=== PATIENT | male | born 1970 | race Caucasian/White ===

== ENCOUNTER 2018-04-09 16:46 | Emergency (ER) | payer OTHER, SELFPAY ==
[2018-04-09] MEDS ORDERED: NA CHLORIDE 0.9% 1,000 ML ONE (17:22)
[2018-04-09] MEDS ORDERED: MORPHINE 4 MG/ML SYR ONE (17:22)
[2018-04-09] MEDS ORDERED: ONDANSETRON 4 MG/2 ML VIAL ONE (17:22)
[2018-04-09 17:39] LABS: Absolute Lymphocytes (CBC) 3.7 K/uL (0.7-4.9); Absolute Monocytes 0.8 K/uL (0.1-1.3); Absolute Neutrophil 5.4 K/uL (1.8-8.0); Eosinophils % 1.8 % (0-4.4); Hematocrit 44.2 % (39.6-49.0); Lymphocytes % 36.4 % (15.3-44.8); MCH 29.1 pg (27.0-35.0); MCV 90.2 fL (80-100); MPV 8.7 fL (7.6-11.3)
--- NOTE | 2018-04-09 17:48 | RAD REPORT ---
EXAM DESCRIPTION: RAD - Wrist Left 3 View - 04/09/2018 5:41 pm CLINICAL HISTORY: Left wrist pain status post injury FINDINGS: An impacted comminuted intra-articular fracture involves the distal radius with angulation present at fracture site. No dislocation is seen.
[2018-04-09 17:49] LABS: Potassium 3.8 mEq/L (3.6-5.0)
[2018-04-09] MEDS ORDERED: BUPIVACAINE 0.5% PF 10 ML VIAL ONE (17:56)
[2018-04-09] MEDS ORDERED: LIDOCAINE 1% W/EPI 1:100,000 MDV 50 ML VIAL ONE (17:56)
--- NOTE | 2018-04-09 19:01 | ER ---
Nurse's Notes [facility] Name: Anthony Pulido Age: 48 yrs Sex: Male : 1970 Arrival Date: 04/09/2018 Time: 16:50 Bed 2 Private MD: None, None Diagnosis: Displaced Fracture of Left Distal Radius Presentation: 04/09 16:55 Presenting complaint: Patient states: "I fell out of ceiling and landed on left arm." sv left forearm deformity noted. Denies head injury or LOC. Transition of care: patient was not received from another setting of care. Onset of symptoms was April 09, 2018 at 16:30. Care prior to arrival: None. 16:55 Method Of Arrival: Wheelchair sv 16:55 Acuity: SACHA 3 sv 17:35 Risk Assessment: Do you want to hurt yourself or someone else? Patient reports no ph desire to harm self or others. Initial Sepsis Screen: Does the patient meet any 2 criteria? No. Patient's initial sepsis screen is negative. Does the patient have a suspected source of infection? No. Patient's initial sepsis screen is negative. Triage Assessment: 19:24 Injury Description: Deformity sustained to left wrist. tl3 Historical: - Allergies: 16:56 No Known Allergies; sv - Home Meds: 16:56 None [Active]; sv - PMHx: 16:56 None; sv - PSHx: 16:56 None; sv - Immunization history:: Adult Immunizations up to date. - Social history:: Smoking status: Patient/guardian denies using tobacco. - Ebola Screening: : No symptoms or risks identified at this time. Screenin:30 Abuse screen: Denies threats or abuse. Denies injuries from another. Nutritional ph screening: No deficits noted. Tuberculosis screening: No symptoms or risk factors identified. Fall Risk None identified. Assessment: 17:30 General: Appears in no apparent distress. uncomfortable, slender, Behavior is calm, ph cooperative, appropriate for age. Pain: Complains of pain in left wrist. Neuro: Level of Consciousness is awake, alert, obeys commands, Oriented to person, place, time, situation. Cardiovascular: Capillary refill < 3 seconds in bilateral fingers Patient's skin is warm and dry. Pulses are palpable in right radial artery and left radial artery. Respiratory: Airway is patent Respiratory effort is even, unlabored, Respiratory pattern is regular, symmetrical. GI: No signs and/or symptoms were reported involving the gastrointestinal system. Derm: Skin is intact, is healthy with good turgor, Skin is pink, warm \\T\\ dry. Musculoskeletal: Circulation, motion, and sensation intact. Range of motion: limited in left wrist Bony deformity noted of left wrist Swelling present in left wrist. 18:35 Reassessment: Patient appears in no apparent distress at this time. Patient and/or ph family updated on plan of care and expected duration. Pain level reassessed. Patient is alert, oriented x 3, equal unlabored respirations, skin warm/dry/pink. Pt reports that pain has decreased to 6/10, awaiting XRAY results, friend at bedside. Vital Signs: 16:57 BP 145 / 79; Pulse 45; Resp 20; Temp 98.3; Pulse Ox 99% ; Weight 72.57 kg; Height 5 ft. sv 7 in. (170.18 cm); Pain 10/10; 18:45 BP 123 / 82; Pulse 80; Resp 16; Pulse Ox 100% on R/A; hb 16:57 Body Mass Index 25.06 (72.57 kg, 170.18 cm) sv ED Course: 16:50 Patient arrived in ED. sb2 16:51 None, None is Private Physician. sb2 16:56 Triage completed. sv 16:57 Arm band placed on left wrist. sv 17:03 Harry Yanez PA is PHCP. cp 17:03 John Sarah MD is Attending Physician. cp 17:13 uNsrat Eller, ADARSH is Primary Nurse. ph 17:35 Initial lab(s) drawn, by me, sent to lab. Inserted saline lock: 20 gauge in right ph antecubital area, using aseptic technique. Blood collected. 17:36 X-ray completed. Portable x-ray completed in exam room. Patient tolerated procedure mh1 well. 17:36 XRAY Wrist LEFT 3 view In Process Unspecified. EDMS 17:36 Patient has correct armband on for positive identification. Bed in low position. Call ph light in reach. Side rails up X 1. Pulse ox on. NIBP on. Warm blanket given. Ice pack to injury. 18:45 Orthoglass splint: Sugar tong splint applied on left arm. capillary refill less than 3 dh3 seconds. Sling applied to left arm. 18:59 Timur Olvera MD is Referral Physician. cp 19:23 No provider procedures requiring assistance completed. IV discontinued, intact, tl3 bleeding controlled, No redness/swelling at site. Pressure dressing applied. Administered Medications: 17:29 Drug: NS 0.9% 1000 ml Route: IV; Rate: 1 bolus; Site: right antecubital; ph 18:32 Follow up: Response: No adverse reaction; IV Status: Completed infusion ph 17:29 Drug: morphine 4 mg Route: IVP; Site: right antecubital; ph 18:34 Follow up: Response: No adverse reaction ph 18:35 Follow up: Response: No adverse reaction; Pain is decreased ph 17:29 Drug: Zofran 4 mg Route: IVP; Site: right antecubital; ph 18:36 Follow up: Response: No adverse reaction ph 18:05 Drug: Marcaine (0.5 %) 5 ml Volume: 10 ml; Route: Infiltration; ph 19:22 Follow up: Response: No adverse reaction tl3 18:05 Drug: Lidocaine-Epinephrine -1%: (1:100,000) 5 ml Volume: 20 ml; Route: Infiltration; ph 19:22 Follow up: Response: No adverse reaction tl3 Outcome: 19:01 Discharge ordered by MD. cp 19:23 Discharged to home ambulatory. tl3 19:23 Condition: good 19:23 Discharge instructions given to patient, Instructed on discharge instructions, follow up and referral plans. medication usage, Demonstrated understanding of instructions, follow-up care, medications, Prescriptions given X 1. 19:24 Patient left the ED. tl3 Signatures: Dispatcher [employer] EDUT Sylvia Peck, RN Joann Alan 1 Nusrat Eller RN RN ph Harry Yanez, BRIGID PA cp Milagros Iniguez, RN ADARSH Araseli Caldera 3 Mariam Espino 2 Lisa Ojeda RN RN tl3
--- NOTE | 2018-04-09 19:01 | EDPHYS ---
Physician Documentation [facility] Name: Anthony Pulido Age: 48 yrs Sex: Male : 1970 Arrival Date: 04/09/2018 Time: 16:50 Bed 2 Private MD: None, None ED Physician John Sarah HPI: 04/09 17:13 This 48 yrs old Male presents to ER via Wheelchair with complaints of Arm cp Injury. 17:13 The patient or guardian complains of decreased range of motion, injury, pain, that is cp acute, swelling, tenderness. The complaints affect the left wrist. Context: The problem was sustained at home, resulted from a fall, through ceiling approximately 8 feet high. Onset: The symptoms/episode began/occurred just prior to arrival. Treatment prior to arrival includes: no previous treatment. Associated signs and symptoms: Pertinent negatives: LOC. Historical: - Allergies: 16:56 No Known Allergies; sv - Home Meds: 16:56 None [Active]; sv - PMHx: 16:56 None; sv - PSHx: 16:56 None; sv - Immunization history:: Adult Immunizations up to date. - Social history:: Smoking status: Patient/guardian denies using tobacco. - Ebola Screening: : No symptoms or risks identified at this time. ROS: 17:15 Eyes: Negative for injury, pain, redness, and discharge. cp 17:15 Constitutional: Negative for body aches, chills, fever, poor PO intake. 17:15 ENT: Negative for drainage from ear(s), ear pain, sore throat, difficulty swallowing, difficulty handling secretions. 17:15 Cardiovascular: Negative for chest pain, edema, palpitations. 17:15 Respiratory: Negative for cough, shortness of breath, wheezing. 17:15 Abdomen/GI: Negative for abdominal pain, vomiting, diarrhea, constipation. 17:15 Back: Negative for pain at rest, pain with movement. 17:15 MS/extremity: Positive for injury or acute deformity, decreased range of motion, pain, swelling, tenderness, of the left wrist. 17:15 Skin: Negative for cellulitis, rash. 17:15 Neuro: Negative for altered mental status, headache, loss of consciousness, syncope, near syncope, weakness. 17:15 All other systems are negative. Exam: 18:00 Head/Face: Normocephalic, atraumatic. Eyes: Pupils equal round and reactive to light, cp extra-ocular motions intact. Lids and lashes normal. Conjunctiva and sclera are non-icteric and not injected. Cornea within normal limits. Periorbital areas with no swelling, redness, or edema. ENT: Nares patent. No nasal discharge, no septal abnormalities noted. Tympanic membranes are normal and external auditory canals are clear. Oropharynx with no redness, swelling, or masses, exudates, or evidence of obstruction, uvula midline. Mucous membranes moist. Neck: Trachea midline, no thyromegaly or masses palpated, and no cervical lymphadenopathy. Supple, full range of motion without nuchal rigidity, or vertebral point tenderness. No Meningismus. Chest/axilla: Normal chest wall appearance and motion. Nontender with no deformity. No lesions are appreciated. 18:00 Constitutional: The patient appears in no acute distress, alert, awake, non-diaphoretic, non-toxic, well developed, well nourished. 18:00 Cardiovascular: Rate: bradycardic, Rhythm: regular, Pulses: Pulses are 2+ in right radial artery and left radial artery. Edema: is not appreciated, JVD: is not appreciated. 18:00 Respiratory: the patient does not display signs of respiratory distress, Respirations: normal, no use of accessory muscles, no retractions, no splinting, no tachypnea, labored breathing, is not present, Breath sounds: are clear throughout, no decreased breath sounds, no stridor, no wheezing. 18:00 Abdomen/GI: Inspection: abdomen appears normal, Bowel sounds: active, all quadrants, Palpation: abdomen is soft and non-tender, in all quadrants, rebound tenderness, is not appreciated, voluntary guarding, is not appreciated, involuntary guarding, is not appreciated. 18:00 Back: pain, is absent, ROM is normal, vertebral tenderness, is not appreciated. 18:00 Musculoskeletal/extremity: Extremities: grossly normal except: noted in the left wrist: decreased ROM, deformity, pain, swelling, tenderness, Perfusion: the extremity is normally perfused throughout, Severe pain noted. 18:00 Skin: cellulitis, is not appreciated, no rash present. 18:00 Neuro: Orientation: to person, place \T\ time. Mentation: lucid, able to follow commands, Cerebellar function: is grossly normal, Motor: moves all fours, strength is normal, Sensation: no obvious gross deficits. Vital Signs: 16:57 BP 145 / 79; Pulse 45; Resp 20; Temp 98.3; Pulse Ox 99% ; Weight 72.57 kg; Height 5 ft. sv 7 in. (170.18 cm); Pain 10/10; 18:45 BP 123 / 82; Pulse 80; Resp 16; Pulse Ox 100% on R/A; hb 16:57 Body Mass Index 25.06 (72.57 kg, 170.18 cm) sv Procedures: 18:47 Splinting: Splint applied to left wrist using Orthoglass splint, sling, sugar tong cp type. applied by myself. tech. Examined by me, post splint application: neurovascular intact, Patient tolerated well. MDM: 17:03 Patient medically screened. cp 17:30 Differential diagnosis: dislocation, open fracture, closed fracture, contusion, cp multiple trauma. 19:00 Data reviewed: vital signs, nurses notes, lab test result(s), radiologic studies, plain cp films, and as a result, I will discharge patient. 19:00 Counseling: I had a detailed discussion with the patient and/or guardian regarding: the cp historical points, exam findings, and any diagnostic results supporting the discharge/admit diagnosis, radiology results, the need for outpatient follow up, a orthopedic surgeon, to return to the emergency department if symptoms worsen or persist or if there are any questions or concerns that arise at home. Response to treatment: the patient's symptoms have markedly improved after treatment, and as a result, I will discharge patient. 04/09 17:07 Order name: Basic Metabolic Panel 04/09 17:07 Order name: CBC with Diff 04/09 17:07 Order name: Creatinine for Radiology 04/09 17:07 Order name: Type And Screen; Complete Time: 18:46 cp 04/09 17:08 Order name: Basic Metabolic Panel; Complete Time: 17:51 EDMS 04/09 17:51 Interpretation: Normal except: GLUC 158; GFR 77. cp 04/09 17:08 Order name: CBC with Automated Diff; Complete Time: 17:51 EDMS 04/09 17:07 Order name: XRAY Wrist LEFT 3 view; Complete Time: 17:51 cp 04/09 17:08 Order name: Creatinine (Radiology Only); Complete Time: 17:51 EDNH 04/09 18:06 Order name: ABO/RH no charge; Complete Time: 18:26 EDNH 04/09 18:26 Interpretation: Reviewed. cp 04/09 17:07 Order name: Labs collected and sent; Complete Time: 17:30 cp Administered Medications: 17:29 Drug: NS 0.9% 1000 ml Route: IV; Rate: 1 bolus; Site: right antecubital; ph 18:32 Follow up: Response: No adverse reaction; IV Status: Completed infusion ph 17:29 Drug: morphine 4 mg Route: IVP; Site: right antecubital; ph 18:34 Follow up: Response: No adverse reaction ph 18:35 Follow up: Response: No adverse reaction; Pain is decreased ph 17:29 Drug: Zofran 4 mg Route: IVP; Site: right antecubital; ph 18:36 Follow up: Response: No adverse reaction ph 18:05 Drug: Marcaine (0.5 %) 5 ml Volume: 10 ml; Route: Infiltration; ph 19:22 Follow up: Response: No adverse reaction tl3 18:05 Drug: Lidocaine-Epinephrine -1%: (1:100,000) 5 ml Volume: 20 ml; Route: Infiltration; ph 19:22 Follow up: Response: No adverse reaction tl3 Disposition: 04/09/18 19:01 Discharged to Home. Impression: Displaced Fracture of Left Distal Radius. - Condition is Stable. - Discharge Instructions: Wrist Fracture. - Prescriptions for Tylenol- Codeine #3 300-30 mg Oral Tablet - take 2 tablets by ORAL route every 6 hours As needed; 20 tablet. - Medication Reconciliation Form, Thank You Letter, Antibiotic Education, Prescription Opioid Use form. - Follow up: Timur Olvear MD; When: 2 - 3 days; Reason: left wrist fracture. - Problem is new. - Symptoms have improved. Addendum: 04/13/2018 12:15 Co-signature as Attending Physician, John Sarah MD. g s Signatures: Dispatcher [employer] EDSylvia Smiley RN RN sv Hall, Patricia, RN RN ph Renata, Harry, PA PA John Sarkar MD MD gs Lowrey, Tammy RN RN tl3 Corrections: (The following items were deleted from the chart) 04/09 19:24 19:01 04/09/2018 19:01 Discharged to Home. Impression: Displaced Fracture of Left tl3 Distal Radius. Condition is Stable. Prescriptions for Tylenol-Codeine #3 300-30 mg Oral Tablet - take 2 tablets by ORAL route every 6 hours As needed; 20 tablet. and Forms are Medication Reconciliation Form, Thank You Letter, Antibiotic Education, Prescription Opioid Use. Follow up: Timur Olvera; When: 2 - 3 days; Reason: left wrist fracture. Problem is new. Symptoms have improved. cp
== END 2018-04-09 19:24 | disposition home or self-care (01) ==
LOC: ER 16:46
PROC: 2W3DX1Z Immobilization of Left Lower Arm using Splint (ICD-10-PCS; principal; 2018-04-09)
DX: S52.502A Unspecified fracture of the lower end of left radius, initial encounter for closed fracture (principal); W17.89XA Other fall from one level to another, initial encounter; Y93.9 Activity, unspecified; Y92.009 Unspecified place in unspecified non-institutional (private) residence as the place of occurrence of the external cause
CPT/HCPCS: 36415; 80048; 85025; 86850; 86900; 86901; 96361; 96374; 96375; 99284; J2405; J7030